=== PATIENT | female | born 1980 | race Caucasian/White ===

== ENCOUNTER 2021-03-06 16:18 | Emergency (ER) | payer OTHER ==
[~2021-03-06] VITALS: Ht 165.1 cm; Wt 77.0 kg
[2021-03-06] MEDS ORDERED: HJ10 IJ (16:23)
[2021-03-06] MEDS ORDERED: LEVE500V IV (16:24)
[2021-03-06 17:00] VITALS: BP 127/85
== END 2021-03-06 17:03 | disposition home or self-care (01) ==
LOC: ER 16:30
DX: Z13.9 Encounter for screening, unspecified (principal); I10 Essential (primary) hypertension; E11.9 Type 2 diabetes mellitus without complications; Z98.890 Other specified postprocedural states
CPT/HCPCS: 99283